=== PATIENT | female | born 1950 | race Caucasian/White ===

== ENCOUNTER → 2024-11-25 13:42 | Outpatient (CLI) | payer MEDICARE, OTHER, SELFPAY ==
--- NOTE | 2024-11-25 13:44 | DI.CT.S_ITS ---
PROCEDURE: CT SINUS SCREEN WO CON INDICATIONS: CHRONIC PANISINUSITIS,NASAL OSBSTRUCTION TECHNIQUE: Noncontrast 3.0 mm axial images acquired from the frontal sinuses to the mid-sella, with coronal and sagittal reformats. For radiation dose reduction, the following was used: automated exposure control, adjustment of mA and/or kV according to patient size. COMPARISON: None. FINDINGS: Image quality: Excellent. Maxillary Sinuses: No bony remodeling or destruction. Small mucous retention cyst at the inferior left maxillary sinus, otherwise clear. Ethmoid Air Cells: No bony remodeling or destruction. Sinuses are clear. Sphenoid Sinuses: No bony remodeling or destruction. Sinuses are clear. Frontal Sinuses: No bony remodeling or destruction. Sinuses are clear. Ostiomeatal Complexes: Ostiomeatal complexes are patent. Small bilateral Liss cells. Miscellaneous: Intracranial clips seen within the left middle cranial fossa. Visualized intra-orbital contents are normal. No leon bullosa or paradoxical turbinate curvature. No nasal septal deviation. IMPRESSION: Small mucous retention cyst at the inferior left maxillary sinus. The paranasal sinuses are otherwise clear. Dictated by: Ken Maldonado M.D. on 11/25/2024 at 17:25 Approved by: Ken Maldonado M.D. on 11/25/2024 at 17:29
== END ==
PROVIDERS: Family Provider Internal Medicine Geriatric Medicine; PCP Internal Medicine Geriatric Medicine; Referring Provider Otolaryngology; Visit Provider Otolaryngology
DX: J32.4 Chronic pansinusitis (principal); J34.89 Other specified disorders of nose and nasal sinuses; J34.1 Cyst and mucocele of nose and nasal sinus
CPT/HCPCS: 70486